=== PATIENT | female | born 1970 ===

== ENCOUNTER 2018-10-23 10:56 | Outpatient (CLI) | payer MEDICAID | END 2018-10-23 10:57 | disposition home or self-care (01) | LOC: C.USIC 10:56 | DX: D25.9 Leiomyoma of uterus, unspecified (principal) ==

== ENCOUNTER → 2018-11-20 | Outpatient (CLI) | payer MEDICAID | LOC: C.MAMMO 10:33 | DX: Z12.31 Encounter for screening mammogram for malignant neoplasm of breast (principal) ==